=== PATIENT | female | born 1950 | race Caucasian/White ===

== ENCOUNTER 2018-01-25 01:15 | Inpatient (IN) | payer OTHER ==
[~2018-01-25] VITALS: Ht 180.3 cm; Wt 84.4 kg
[~2018-01-25 01:15] MED LIST: ELIQUIS2.5 M1 PO; FLECAINIDE ACE100 M1 PO; PROPRANOLOL HCL40 M1 PO; XANAX0.5 M1 PO
--- NOTE | 2018-01-25 09:48 | Admission Core Measures ---
Acute Coronary Syndrome (CM) ACS Core Measures Acute Coronary Syndrome Diagnosis No Congestive Heart Failure (NEW) CHF Core Measures Congestive Heart Failure Diagnosis No Cerebrovascular Accident CVA Core Measures CVA/TIA Diagnosis No Venous Thromboembolism VTE Core Evie (View Protocol) VTE Risk Factors Surgery No Mechanical VTE Prophylaxis d/t N/A MechProphylax Ordered No VTE Pharm Prophylaxis d/t NA PharmProphylax ordered Problem List As ranked by this Provider includes Assessment & Plan 1. Unilateral primary osteoarthritis, left hip HOME MEDS Home Med List Alprazolam (Xanax) 0.5 MG TABLET 1 TAB PO BIDP PRN ANXIETY (Reported) Apixaban (Eliquis) 2.5 MG TABLET 1 TAB PO BID AFIB (Reported) Flecainide Acetate 100 MG TABLET 1 TAB PO BID AFIB (Reported) Propranolol HCl 40 MG TABLET 1.5 TAB PO BID HTN/AFIB (Reported)
--- NOTE | 2018-01-25 09:50 | Surg Short-stay <48hrs Dis Sum ---
Visit Information Visit Dates Admission Date: 01/25/18 Discharge Date: 01/26/18 Surgical Short Stay DC Summary Admission Diagnosis: Left hip OA Final Diagnosis: JEFF s/p L LAINEY Procedure(s): Left hip arthroplasty Summary/Significant Findings: Patient was admitted to the hospital for an elective left total hip replacement. The procedure was tolerated well and patient was transferred to a general surgical floor. Diet was advanced and tolerated. The patient was evaluated and treated by physical therapy. At the time of hospital discharge, vital signs were stable, neurovascular status was intact and pain was controlled with the use of oral pain medications. Condition at Discharge: Stable Discharge Disposition: home health services Discharge instructions provided to patient/family: Yes Post discharge follow-up plan: [address] Haynes Copies to: Krzysztof Haynes MD
--- NOTE | 2018-01-25 09:52 | Patient Discharge Instructions ---
Discharge Instructions General Discharge Information You were seen/treated for: Left hip osteoarthritis You had these procedures: Left total hip arthroplasty Watch for these problems: Increasing pain despite the use of pain medication Increasing redness, warmth or swelling Drainage of any type from incision Inability to bear weight on operative leg Persistent nausea and vomiting Fever greater than 101.5 degrees Do not soak the wound: Yes No bath, but you may shower: Yes Other wound care: Please keep wound clean and dry. No ointments or lotions of any type on or near incision at any time. No exceptions. Your dressing will be changed by your nurse on the second day after your surgery. Daily dry dressing changes are recommended each day thereafter. Do not soak your wound in a bath or pool at any time until otherwise indicated by your surgeon. You may shower, please dry wound immediately after shower with a clean towel. Special Instructions: Take Eliquis as directed: -2.5mg twice daily for 1 week, then resume regular dose of 5mg twice daily. Constipation: Pain medication can cause constipation. Your surgeon has recommended that you take Colace and miralax each day. You may discontinue this medication if you develop loose stool or diarrhea. Diet Continue normal diet: Yes Activity Full Activity/No Limits: No Activity Self Limited: Yes Activity Limited to: Weight bear as tolerated (use rolling walker as needed) Acute Coronary Syndrome Inclusion Criteria At DC or during hospital stay patient has or had the following: ACS DIAGNOSIS No Discharge Core Measures Meds if any: Prescribed or Continued at Discharge Meds if any: NOT Prescribed or Continued at Discharge Congestive Heart Failure Inclusion Criteria At DC or during hospital stay patient has or had the following: CHF DIAGNOSIS No Discharge Core Measures Meds if any: Prescribed or Continued at Discharge Meds if any: NOT Prescribed or Continued at Discharge Cerebrovascular accident Inclusion Criteria At DC or during hospital stay patient has or had the following: CVA/TIA Diagnosis No Discharge Core Measures Meds if any: Prescribed or Continued at Discharge Meds if any: NOT Prescribed or Continued at Discharge Venous thromboembolism Inclusion Criteria VTE Diagnosis No VTE Type NONE VTE Confirmed by (Test) NONE Discharge Core Measures - Per Current guidelines, there needs to be overlap - treatment for the first 5 days of Warfarin therapy. - If discharged on Warfarin prior to 5 days of - overlap therapy, the patient will need to be - assessed for post discharge needs including - *Post discharge parental anticoagulation - *Warfarin and/or parental anticoagulation education - *Follow up date to check INR post discharge At least 5 days overlap therapy as Inpatient No Meds if any: Prescribed or Continued at Discharge Note: Overlap Therapy is Warfarin and Anticoagulant Meds if any: NOT Prescribed or Continued at Discharge
--- NOTE | 2018-01-25 14:38 | Operative Report ---
Operative/Inv Procedure Report Surgery Date: 01/25/18 Name of Procedure: Left total hip replacement Pre-Operative Diagnosis: Primary left hip DJD Post-Operative Diagnosis: Same Estimated Blood Loss: 250 Surgeon/Sander And Polisher: [place] KELLER,Krzysztof Rogel Anesthesia: block Operative/Procedure Note Note: Description of Procedure: The patient was taken to the operating room and positively identified. After induction of spinal anesthesia and administration of appropriate pre-operative antibiotics, the patient was positioned supine on the operating room table and all bony prominences were well padded. After performing a surgical timeout, the left lower extremity was prepped and draped in the usual sterile fashion. A direct anterior approach was made to the left hip. The incision was carried sharply through superficial soft tissues to the level of the fascia. Meticulous hemostasis was maintained with Bovie electocautery. The fascia over the tensor fascia jd muscle was opened sharply and the interval between the TFL and the sartorius was entered bluntly taking care to stay lateral to the lateral femoral cutaneous nerve. Retractors were placed around the femoral neck and the pericapsular fat was identified. The ascending branches of the lateral femoral circumflex vessels were identified and carefully coagulated. The pericapsular fat and anterior capsule were then resected. A napkin ring osteotomy was performed and the femoral head was removed without difficulty. Attention was then turned to the acetabulum. After appropriate placement of retractors, the acetabulum was exposed. Soft tissue was cleaned from the acetabular margin and notch. Overhanging osteophytes were removed and the teardrop was exposed. The acetabulum was then sequentially reamed to accept a 58 mm [place] Tritanium hemispherical solid shell. This was impacted into place in the appropriate position and fitted with a 36 mm Trident X3 zero degree polyethylene insert. Attention was then turned to the femur. After performing the appropriate ligament releases, the proximal femur was exposed. It was then sequentially broached to accept a size 6 Johan Accolade 2 stem. This was trialed for leg length and stability. The trial component was removed and the final component was impacted into place. The trunnion was carefully cleaned and fit with a 36 mm, +2.5 Biolox delta ceramic femoral head. The hip was reduced and put through a full range of motion and found to be stable. The articular space was then irrigated with sterile saline. The periarticular soft tissues were infilitrated with Marcaine. The fascial layer was closed with interrupted #1 vicryl suture and the skin was re-approximated with interrupted 2 -0 vicryl. The skin was closed with a running 3-0 V-Lock suture. Steri-strips and a sterile dressing were applied. The patient was awakened and taken to the recovery room in satisfactory condition.
--- NOTE | 2018-01-25 15:25 | RADIOLOGY REPORT ---
EXAMINATION: XR HIP, LEFT CLINICAL INFORMATION: Status post left total hip arthroplasty COMPARISON: None. TECHNIQUE: AP and cross table lateral views of the left hip were obtained. FINDINGS: There are sequelae of a left total hip arthroplasty. The hardware appears in good anatomic alignment and intact. There are postoperative changes in the periarticular soft tissues. IMPRESSION: 1. X-rays of the left hip status post total hip arthroplasty.
[2018-01-25] MEDS ORDERED: ELIQUIS2.5 M1 PO ×2 (15:49→16:00)
[2018-01-25] MEDS ORDERED: COLACE100 M1 PO ×2 (15:49→16:00)
[2018-01-25] MEDS ORDERED: DILAUDID2 M1 PO ×2 (15:49→16:00)
[2018-01-25] MEDS ORDERED: MIRALAX17 G1 PO ×2 (15:49→16:00)
[2018-01-25] MEDS ORDERED: MS CONTIN15 M3 PO ×2 (15:49→16:00)
--- NOTE | 2018-01-25 15:52 | PN- Orthopedic ---
Subjective Subjective: POC still numb d/t spinal. no n/v/cp/sob. no pain. Objective Vital Signs and I&Os Intake & Output 01/25 1600 01/25 0800 01/25 0000 01/24 1600 01/24 0801/24 0000 Intake Total Output Total Balance Patient 170 lb Weight Physical Exam: gen- nad card-s1s1 pulm-ctab abd- soft nt ext-left hip dressing cdi, ice in place. alps on bl. motor/sensate greatly diminished bl le. Assessment/Plan Assessment/Plan A- 67F POD0 sp L LAINEY, with neuro deficits in ble d/t residual spinal anesthesia, otherwise stable. P- monitor neurovasc checks eliquis 2.5 bid x1 week, then resume home dose of 5mg bid oob, pt, wbat dc planning- [facility] dc prn pain meds home meds reg diet will dw attending Core Measures Venous Thromboembolism VTE Risk Factors Surgery No Mechanical VTE Prophylaxis d/t N/A MechProphylax Ordered No VTE Pharm Prophylaxis d/t NA PharmProphylax ordered
[2018-01-25 17:00] VITALS: BP 147/60
[2018-01-25 18:50] VITALS: BP 100/50
[2018-01-25 21:00] VITALS: BP 90/50
[2018-01-25 22:07] VITALS: BP 115/60
[2018-01-26 04:09] VITALS: BP 130/68
--- NOTE | 2018-01-26 07:35 | PN- Orthopedic ---
Subjective Subjective: Patient doing very well this morning. She reports pain is well-controlled. She 's been out of bed and voiding without any difficulty. Tolerating a regular diet. Denies any other issues or complaints. Is anxious to return to home. Objective Vital Signs and I&Os Vital Signs Date Time Temp Pulse Resp B/P B/P Pulse O2 O2 Flow FiO2 Mean Ox Delivery Rate 01/26 0409 97.8 48 20 130/68 96 01/25 2215 66 115/60 01/25 2207 66 115/60 01/25 2100 98.0 58 16 90/50 98 Room Air 01/25 1955 Room Air 01/25 1850 98.1 66 16 100/50 96 Room Air 01/25 1700 98.5 49 18 147/60 95 Room Air Intake & Output 01/26 0801/26 0000 01/25 1600 01/25 0801/25 0000 01/24 1600 Intake Total 1090 200 Output Total 700 200 Balance 390 0 Intake, IV 850 Intake, Oral 240 200 Output, Urine 700 200 Patient 186 lb 170 lb Weight Weight Bed scale Measurement Method Physical Exam: Gen.: Alert, awake, no acute distress Extremities: Left anterior hip dressing is clean, dry, and intact, some ashley- incisional ecchymosis, no signs of hematoma, seroma, induration, or edema, neurovascular status intact Current Medications: Current Medications Sig/Rajwinder Start time Last Medication Dose Route Stop Time Status Admin Acetaminophen 1,000 MG Q6 01/25 1200 DC 01/26 IV 01/26 0601 0458 Acetaminophen 0 .STK-MED ONE 01/25 1151 DC PO Acetaminophen 975 MG ONCE 01/25 0000 DC PO 01/25 235 Alprazolam 0.5 MG BID PRN 01/25 2100 AC 01/25 PO 02/01 205 221 Cefazolin Sodium 2 GM Q8H 01/26 0300 DC 01/26 N/A 1 UNIT IV 01/26 0329 0253 Cefazolin Sodium 2 GM IQ8 01/25 1600 DC 01/25 N/A 1 UNIT IV 01/26 0029 1900 Cefazolin Sodium 2,000 MG ONCE 01/25 0000 DC IV 01/25 2359 Dextrose/Sodium 1,000 ML .[id number] 01/25 1715 AC 01/26 Chloride IV 0458 Docusate Sodium 100 MG BID 01/25 2100 AC 01/25 PO 2215 Flecainide Acetate 100 MG BID 01/25 2100 AC 01/25 PO 2217 Hydromorphone HCl 2 MG Q4P PRN 01/25 1715 AC 01/25 PO 2216 Hydromorphone HCl 4 MG Q4P PRN 01/25 1715 AC PO Midazolam HCl 0 .STK-MED ONE 01/25 0924 DC .ROUTE Morphine Sulfate 2 MG Q3P PRN 01/25 1715 AC IV Omeprazole 20 MG DAILY AC 01/26 0700 AC PO Ondansetron HCl 4 MG Q6P PRN 01/25 1715 AC IV Oxycodone HCl 0 .STK-MED ONE 01/25 1153 DC PO Oxycodone HCl 10 MG ONCE 01/25 0000 DC PO 01/25 2359 Oxycodone/ 0 .STK-MED ONE 01/25 1151 DC Acetaminophen PO Polyethylene Glycol 17 GM DAILY 01/26 0900 AC PO Propranolol HCl 60 MG BID 01/25 2100 AC 01/25 PO 2215 Tranexamic Acid 0 .STK-MED ONE 01/25 0924 DC IV Results Last 48 Hours of Labs: Laboratory Tests 01/26 0635 Chemistry Sodium Pending Potassium Pending Chloride Pending Carbon Dioxide Pending Anion Gap Pending BUN Pending Creatinine Pending BUN/Creatinine Ratio Pending Hematology CBC w Diff Pending WBC Pending RBC Pending Hgb Pending Hct Pending MCV Pending MCH Pending MCHC Pending RDW Pending Plt Count Pending MPV Pending Assessment/Plan Assessment/Plan A- 67F POD#1 s/p L LAINEY P- monitor neurovasc checks eliquis 2.5 bid x1 week, then resume home dose of 5mg bid oob, pt, wbat dc planning for today- [facility] dc prn pain meds home meds reg diet will d/w attending Problem List: 1. Unilateral primary osteoarthritis, left hip 2. History of total left hip arthroplasty Core Measures Venous Thromboembolism VTE Risk Factors Surgery No Mechanical VTE Prophylaxis d/t N/A MechProphylax Ordered No VTE Pharm Prophylaxis d/t NA PharmProphylax ordered
[2018-01-26 08:27] VITALS: BP 124/76
[2018-01-26 08:45] LABS: ABSOLUTE BASOPHIL COUNT 0 /CUMM (0.0-0.2); ABSOLUTE EOSINOPHIL COUNT 0 /CUMM (0.0-0.7); ABSOLUTE GRANULOCYTE CT 8.2 /CUMM (1.4-6.5); ABSOLUTE LYMPH COUNT 1.1 /CUMM (1.2-3.4); ABSOLUTE MONOCYTE COUNT 0.9 /CUMM (0.10-0.60); BASOPHIL % 0.2 % (0.0-2.0); EOSINOPHIL % 0 % (0-5); GRANULOCYTE % 80.4 % (42.2-75.2); HEMATOCRIT 32.3 % (37-47); MEAN CORPUSCULAR HGB 34.2 PG (27.0-31.0); MEAN CORPUSCULAR HGB CONC 34.4 G/DL (33.0-37.0); MEAN CORPUSCULAR VOLUME 99.4 FL (81.0-99.0); MEAN PLATELET VOLUME 9.5 FL (7.4-10.4); PLATELET COUNT 239 /CUMM (130-400); RBC DISTRIBUTION WIDTH 14.1 % (11.5-14.5); RED BLOOD CELL CT 3.25 /CUMM (4.20-5.40); WHITE BLOOD CELL COUNT 10.3 /CUMM (4.8-10.8)
[2018-01-26 09:02] VITALS: BP 124/76
== END 2018-01-26 10:20 | disposition home health service (06) | DRG 470 ==
LOC: SDA 01:15 → ENRESERV 15:44 → ENTRNSPT 16:40 → 2NB 16:48 → EDTRNSPTSTS 17:02 → EDTRNSPT 17:02 → CMPTRNSPT 17:10 → ENPENDDIS 01-26 07:41 → ENTRNSPT 01-26 10:07 → EDTRNSPT 01-26 10:12 → EDTRNSPTSTS 01-26 10:12 → 2NB 01-26 10:20 → CMPTRNSPT 01-26 11:00
PROVIDERS: Physician Assistant Surgical
PROC: 0SRB04A Replacement of Left Hip Joint with Ceramic on Polyethylene Synthetic Substitute, Uncemented, Open Approach (ICD-10-PCS; principal; 2018-01-25)
DX: M16.12 Unilateral primary osteoarthritis, left hip (principal); I48.2 Chronic atrial fibrillation; E03.9 Hypothyroidism, unspecified; F41.9 Anxiety disorder, unspecified; L40.9 Psoriasis, unspecified; I10 Essential (primary) hypertension; Z79.01 Long term (current) use of anticoagulants
CPT/HCPCS: 2NBP; 36415; 73502-LT; 82436; 97116-GO; 97161-GP; J0131; J0690; J0735; J7042